=== PATIENT | male | born 1960 | race African-American/Black ===

== ENCOUNTER 2017-12-01 09:14 | Emergency (ER) | payer SELFPAY ==
[~2017-12-01] VITALS: Ht 180.3 cm; Wt 70.5 kg
[2017-12-01 09:14] VITALS: BP 161/100; PULSE 109; RESP 20; TEMP 98.7; O2SAT 98
--- NOTE | 2017-12-01 12:32 | PD ---
HPI Chief Complaint: Bite or Sting Time Seen by Provider: 12:32 Travel History International Travel<30 days: No Contact w/Intl Traveler<30days: No Traveled to known affect area: No History of Present Illness HPI 57-year-old male came to the emergency room with history of dog bite of his right middle finger today. This is his nephew's dog that he's watching. Patient does not think that the dog is vaccinated. He said he had taken the middle finger in his mouth and kept it bitten for a while. Patient also says that diabetes runs in his family and the other day he felt like he was having blurred vision and bilateral feet numbness and he would like to get his sugar checked. Unknown tetanus status PFSH Past Medical History Narrative Medical List of his allergies reviewed from the nursing note. Social History Tobacco Use: No Allergies-Medications (Allergen,Severity, Reaction): Coded Allergies: No Known Allergies (Unverified , 12/01/17) Comments No known drug allergies. Reported Meds & Prescriptions Reported Meds & Active Scripts Active Augmentin (Amoxicillin-Clavulanate) 500-125 mg Tab 500 Mg PO BID 10 Days Narrative Medication Awaiting for the nurse to give the medication reconciliation. Review of Systems Except as stated in HPI: all other systems reviewed are Neg Physical Exam Narrative GENERAL: Awake, alert, moderate distress SKIN: Focused skin assessment warm/dry. Right hand middle finger on the palmar aspect on the middle phalanx is a large V-shaped laceration with active bleeding. Patient has decreased flexion of that finger but could be from the pain. It's hard to say whether the tendons are involved the laceration is deep. The edges are jagged. HEAD: Atraumatic. Normocephalic. EYES: Pupils equal and round. No scleral icterus. No injection or drainage. ENT: No nasal bleeding or discharge. Mucous membranes pink and moist. NECK: Trachea midline. No JVD. CARDIOVASCULAR: Regular rate and rhythm. No murmur appreciated. RESPIRATORY: No accessory muscle use. Clear to auscultation. Breath sounds equal bilaterally. GASTROINTESTINAL: Abdomen soft, non-tender, nondistended. Hepatic and splenic margins not palpable. MUSCULOSKELETAL: No obvious deformities. No clubbing. No cyanosis. No edema. NEUROLOGICAL: Awake and alert. No obvious cranial nerve deficits. Motor grossly within normal limits. Normal speech. PSYCHIATRIC: Appropriate mood and affect; insight and judgment normal. Data Data Last Documented VS Vital Signs Date Time Temp Pulse Resp B/P (MAP) Pulse Ox O2 Delivery O2 Flow Rate FiO2 12/01/17 15:22 12/01/17 15:19 86 20 98 Room Air 12/01/17 09:14 98.7 Orders Orders Blood Glucose (12/01/17 12:35) Hand, Complete ([id number]) (12/01/17 ) Amoxicil-Clavulanate (Augmentin) (12/01/17 12:45) Ibuprofen (Motrin) (12/01/17 12:45) Lidocaine 1% Inj (50 Ml) (Xylocaine 1% I (12/01/17 13:30) Lidocaine 1% Inj (Xylocaine 1% Inj) (12/01/17 14:00) Ed Discharge Order (12/01/17 15:05) MDM Medical Decision Making Medical Screen Exam Complete: Yes Emergency Medical Condition: Yes Medical Record Reviewed: Yes Differential Diagnosis Dog bite, possible tendon laceration, possible fracture Narrative Course 12:54 PM awaiting for an x-ray of the finger to see if there is a fracture. Once that is negative I will try to repair the wound with loose approximation and patient will follow up with hand surgeon. He was given a dose of Augmentin here. 3:05 PM the laceration was just repaired loosely by me. I discussed the case with the hand surgeon Dr. Alfonso once the patient to be seen in his office by tomorrow or day after. I have explained this to the patient and it would be including in the discharge instructions as well. Please refer to my procedure note for the laceration repair. This was an extremely complex laceration repair given the fact that the distal part of the finger to the laceration was near degloving. The skin was loosely approximated. The bleeding was controlled even though during the procedure the bleeding was moderate. Procedures Procedure Narrative LACERATION LOCATION: Middle finger middle phalanx LENGTH: 5 cm NUMBER OF STITCHES/JOLANTA: 12 stitches REPAIR: The area of the laceration was prepped with Betadine and sterilely draped. The laceration was infiltrated with 1% lidocaine 10 mL. The wound was copiously irrigated and explored without evidence of foreign body, tendon injury or neurovascular injury. The wound was closed using 4-0 Ethilon. This was a single layer repair. A sterile dressing was applied. The patient was advised to keep the dressing clean and dry. Patient tolerated the procedure well. EKG Prior to Arrival: No Diagnosis Primary Impression: Dog bite Qualified Codes: W54.0XXA - Bitten by dog, initial encounter Additional Impression: Finger laceration Qualified Codes: S61.212A - Laceration without foreign body of right middle finger without damage to nail, initial encounter Referrals: Felton Platt MD 1 day Additional Instructions: Please call the hand surgeon whose name and number been provided to you on this discharge instruction. Take the antibiotic as per the prescription direction. Keep the wound and dressing clean and dry. Seen the hand surgeon. Return to the ER if the condition worsens or any other new concerns. Med/Other Pt SpecificInfo: Prescription(s) given Scripts Amoxicillin-Clavulanate (Augmentin) 500-125 mg Tab 500 MG PO BID for Infection for 10 Days, TAB 0 Refills Prov: Toro Mason MD 12/01/17 Disposition: 01 DISCHARGE HOME Condition: Stable Toro Mason MD Dec 01, 2017 12:32
[2017-12-01] MEDS ORDERED: IBUPROFEN 600 MG TAB PO ONE (12:45)
[2017-12-01] MEDS ORDERED: AMOXICILLIN/CLAVULANATE K 500 MG TAB PO ONE (12:45)
--- NOTE | 2017-12-01 13:21 | RADRPT ---
EXAM DATE/TIME: 12/01/2017 12:52 [facility] COMPARISON: No previous studies available for comparison. INDICATIONS : Dog bit hand this morning and cut his 3rd digit. MEDICAL HISTORY : Hypertension. Diabetes mellitus type II. SURGICAL HISTORY : None. ENCOUNTER: Initial ACUITY: 1 day PAIN SCORE: 4/10 LOCATION: Right Hand FINDINGS: Three view examination of the right hand demonstrates no dislocation, or fracture. Laceration third finger. The carpal bones appear intact. The interphalangeal and metacarpophalangeal joints are intac t. Bony mineralization is normal. CONCLUSION: 1. No acute bony findings. Soft tissue laceration third finger. No radiopaque foreign body. Mild oste oarthritis. Kaden Jefferson MD on December 01, 2017 at 13:17 Board Certified Radiologist. This report was verified electronically.
[2017-12-01] MEDS ORDERED: LIDOCAINE HCL 1% 50 ML VIAL INFIL ONE (13:30)
[2017-12-01] MEDS ORDERED: LIDOCAINE HCL 1% 20 ML VIAL INFIL ONE (14:00)
[2017-12-01] MEDS ORDERED: AUGM500T7 PO (15:10)
[2017-12-01 15:19] VITALS: BP 166/109; PULSE 86; RESP 20; O2SAT 98
== END 2017-12-01 16:03 | disposition home or self-care (01) ==
LOC: NEPD 09:14
DX: S61.252A Open bite of right middle finger without damage to nail, initial encounter (principal); R20.0 Anesthesia of skin; H53.8 Other visual disturbances; W54.0XXA Bitten by dog, initial encounter; Z83.3 Family history of diabetes mellitus
CPT/HCPCS: 12002; 73130

== ENCOUNTER 2018-01-24 09:44 | Emergency (ER) | payer SELFPAY ==
[~2018-01-24] VITALS: Ht 180.3 cm; Wt 69.0 kg
[~2018-01-24 09:44] MED LIST: AUGM500T7 PO
[2018-01-24 10:20] VITALS: BP 186/99; PULSE 74; RESP 19; TEMP 98.9
--- NOTE | 2018-01-24 10:42 | PD ---
HPI Chief Complaint: Wound/Suture/Staple Re-Check Time Seen by Provider: 10:31 Travel History International Travel<30 days: No Contact w/Intl Traveler<30days: No Traveled to known affect area: No History of Present Illness HPI The patient is a 57-year-old [place] male who presents emergency department for suture removal of the third digit right hand. The patient states he was bit by a dog on December 01, 2017. The patient had sutures placed at that time and was advised to follow-up with hand surgery on an outpatient basis. The patient states he did not follow-up with hand surgery, does state he has had some swelling of the third digit, right hand, for several weeks. The sutures are still in place. He denies any drainage from the affected area. He does note Limited range of motion with flexion and extension of the affected digit. He is right-hand dominant. He also complains of numbness or tingling to the ulnar aspect of the third digit distal to the laceration which has been persistent since initial dog bite. Patient's tetanus shot is up-to- date, he did take medications as previously directed. PFSH Past Medical History Diminished Hearing: No Social History Alcohol Use: No Tobacco Use: No Substance Use: No Allergies-Medications (Allergen,Severity, Reaction): Coded Allergies: No Known Allergies (Unverified , 12/01/17) Reported Meds & Prescriptions Reported Meds & Active Scripts Active Augmentin (Amoxicillin-Clavulanate) 500-125 mg Tab 500 Mg PO BID 10 Days Review of Systems Except as stated in HPI: all other systems reviewed are Neg General / Constitutional: No: Fever Musculoskeletal: Positive: Limited ROM, Pain Skin: Positive Other (as noted in the history of present illness) Neurologic: Positive: Paresthesia, Sensory Disturbance Physical Exam Narrative GENERAL: Awake, alert, pleasant 57-year-old male who appears his stated age and is in no acute respiratory distress. SKIN: Focused skin assessment warm/dry. HEAD: Atraumatic. Normocephalic. MUSCULOSKELETAL: Third digit of the right hand reveals edema over the proximal interphalangeal joint. He is unable to extend or flex at the PIP, severe limited range of motion of the DIP. Skin is glossy overlying the affected area but no erythema or warmth. Sutures are in place with small amount of crusting but no drainage noted. NEUROLOGICAL: Awake and alert. No obvious cranial nerve deficits. Motor grossly within normal limits. Normal speech. Decreased sensation of the distal aspect of third digit on the right hand greater on the ulnar aspect as compared to the left, from the proximal interphalangeal joint distally. PSYCHIATRIC: Appropriate mood and affect; insight and judgment normal. Data Data Last Documented VS Vital Signs Date Time Temp Pulse Resp B/P (MAP) Pulse Ox O2 Delivery O2 Flow Rate FiO2 01/24/18 10:20 98.9 74 19 186/99 (128) Orders Orders Finger ([id number]) (01/24/18 ) Remove Sutures (01/24/18 10:37) Mandatory Outpatient Referral (01/24/18 11:04) [facility] Medical Decision Making Medical Screen Exam Complete: Yes Emergency Medical Condition: Yes Medical Record Reviewed: Yes Interpretation(s) Last Impressions Finger X-Ray 01/24/18 0000 Signed Impressions: Service Date/Time: Wednesday, January 24, 2018 11:13 - CONCLUSION: Soft tissue swelling otherwise negative Jay Calvert MD FACR Differential Diagnosis Differential diagnosis includes frozen joint, intra-articular foreign body, tendon laceration, neuropathy. Narrative Course The patient's sutures were removed. X-ray of the third digit right hand was obtained. The patient appears to have a frozen joint versus tendon laceration after the apparent injury in November 2017. I discussed the patient with the on- call hand surgeon, Dr. Grimaldo, who will see the patient on an outpatient basis. No acute indication for splint placement after discussion with Dr. Grimaldo. X- ray reveals soft tissue swelling, otherwise unremarkable. The swelling has been present for several weeks, doubt acute cellulitis or abscess. Patient is advised to follow-up with hand surgery. Diagnosis Primary Impression: Frozen joint Referrals: Kayley Grimaldo MD call for appointment Mandatory referral placed Additional Instructions: A mandatory referral has been placed, follow-up with Dr. Grimaldo after notified by mandatory referral service. Wound care instructions. Med/Other Pt SpecificInfo: No Change to Meds Disposition: 01 DISCHARGE HOME Condition: Stable Kal Saha MD Jan 24, 2018 10:42
--- NOTE | 2018-01-24 11:25 | RADRPT ---
EXAM DATE/TIME: 01/24/2018 11:13 [facility] COMPARISON: No previous studies available for comparison. INDICATIONS : Patient states stitches were removed today, 3rd digit pain. MEDICAL HISTORY : Hypertension. Diabetes mellitus type II. SURGICAL HISTORY : None. ENCOUNTER: Initial ACUITY: 1 month PAIN SCORE: 0/10 LOCATION: Right Hand, 3rd Digit FINDINGS: Soft tissue swelling third digit without fracture or bone destruction. CONCLUSION: Soft tissue swelling otherwise negative Jay Calvert MD FACR on January 24, 2018 at 11:23 Board Certified Radiologist. This report was verified electronically.
== END 2018-01-24 12:43 | disposition home or self-care (01) ==
LOC: NEPD 09:44
DX: M25.841 Other specified joint disorders, right hand (principal); I10 Essential (primary) hypertension; E11.9 Type 2 diabetes mellitus without complications; Z48.02 Encounter for removal of sutures
CPT/HCPCS: 73140; 99283